=== PATIENT | female | born 1975 | race African-American/Black ===

== ENCOUNTER 2017-08-09 11:03 | Emergency (ER) | payer OTHER ==
[~2017-08-09] VITALS: Ht 162.6 cm; Wt 102.7 kg
[~2017-08-09 11:03] MED LIST: ABILIFY10 MG; ABILIFY10 MG PO; ABILIFY2 MG PO; ALPRAZOLAM0.5 MG PO; ANTIVERT25 MG PO; NOHOMEMEDS; NORCO 5/3251 TABLET PO; PRENATAL TABLE1 EAC3 PO; levothyroxine PO
[2017-08-09 11:41] LABS: HEMATOCRIT 40.2 % (36.0-46.0); MCH 27.5 PG (29.0-34.0); MCHC 32.8 G/DL (30.0-36.0); MCV 83.8 FL (83-99); MEAN PLAT.VOLUME 8.9 uM^3 (9.5-12.4); PLATELET COUNT 490 K/uL (156-360); RBC DIS.WIDTH-CV 14.6 % (11.8-14.6); RBC DIS.WIDTH-SD 44.9 % (39-53); WHITE BLOOD COUNT 10.1 K/uL (4.1-10.2)
[2017-08-09 11:52] LABS: CHLORIDE 102 mEq/L (99-109); POTASSIUM 3.9 mEq/L (3.7-5.4); SODIUM 138 mEq/L (136-147)
[2017-08-09 11:54] LABS: GLUCOSE 132 mg/dL (70-99)
[2017-08-09 11:55] LABS: ANION GAP 10 MEQ/L (2-14)
[2017-08-09 11:58] LABS: GFR ESTIMATE (CALCULATED) > 59 mL/min/
[2017-08-09 11:59] LABS: UREA NITROGEN (BUN) 10 mg/dL (9-23)
[2017-08-09 12:00] LABS: TROP-I INTERPRETATION NEGATIVE; TROPONIN-I < 0.01 ng/mL (0.0-0.30)
[2017-08-09 14:30] VITALS: BP 134/91
== END 2017-08-09 14:31 | disposition home or self-care (01) ==
LOC: EME 11:03
DX: R51 Headache (principal); I10 Essential (primary) hypertension; F32.9 Major depressive disorder, single episode, unspecified; F41.9 Anxiety disorder, unspecified; E05.90 Thyrotoxicosis, unspecified without thyrotoxic crisis or storm; F17.200 Nicotine dependence, unspecified, uncomplicated
CPT/HCPCS: 71020; 80048; 84484; 85027; 93005; 99281; 99284

== ENCOUNTER 2018-01-03 19:57 | Emergency (ER) | payer OTHER ==
[~2018-01-03] VITALS: Ht 162.6 cm; Wt 105.9 kg
[2018-01-03] MEDS ORDERED: NAPROSYN500 MG PO (21:46)
[2018-01-03 22:20] VITALS: BP 157/73
== END 2018-01-03 22:21 | disposition home or self-care (01) ==
LOC: EME 19:57
DX: R59.0 Localized enlarged lymph nodes (principal); I10 Essential (primary) hypertension; R51 Headache; E05.90 Thyrotoxicosis, unspecified without thyrotoxic crisis or storm; F31.9 Bipolar disorder, unspecified; F32.9 Major depressive disorder, single episode, unspecified; F41.9 Anxiety disorder, unspecified; F17.200 Nicotine dependence, unspecified, uncomplicated
CPT/HCPCS: 99281; 99284

== ENCOUNTER 2018-03-12 16:48 | Emergency (ER) | payer OTHER ==
[~2018-03-12] VITALS: Ht 162.6 cm; Wt 106.1 kg
[~2018-03-12 16:48] MED LIST changes: +NAPROSYN500 MG PO
[2018-03-12 17:23] LABS: HEMATOCRIT 37.6 % (36.0-46.0); HEMOGLOBIN 12.7 G/DL (11.9-15.5); MCH 27.9 PG (29.0-34.0); MCHC 33.8 G/DL (30.0-36.0); MCV 82.5 FL (83-99); PLATELET COUNT 461 K/uL (156-360); RBC DIS.WIDTH-CV 14.2 % (11.8-14.6); RBC DIS.WIDTH-SD 42.5 % (39-53); RED BLOOD COUNT 4.56 M/uL (3.80-5.20)
[2018-03-12 17:36] LABS: CHLORIDE 104 mEq/L (99-109); POTASSIUM 3.6 mEq/L (3.7-5.4); SODIUM 137 mEq/L (136-147)
[2018-03-12 17:39] LABS: GLUCOSE 114 mg/dL (70-99); TOTAL PROTEIN 7.7 g/dL (6.4-8.3)
[2018-03-12 17:41] LABS: TOTAL BILIRUBIN 0.2 mg/dL (0.0-1.0)
[2018-03-12 17:42] LABS: ALKALINE PHOSPHATASE 78 IU/L (3-129); CREATININE 0.7 mg/dL (0.6-1.3); GFR ESTIMATE (CALCULATED) > 59 mL/min/
[2018-03-12 17:43] LABS: UREA NITROGEN (BUN) 12 mg/dL (9-23)
[2018-03-12 17:44] LABS: AST (GOT) 12 IU/L (2-34)
[2018-03-12 17:45] LABS: ALT (GPT) 13 IU/L (3-49)
[2018-03-12 17:51] LABS: QUANTITATIVE HCG 5387.3 MIU/ML
[2018-03-12 19:35] LABS: APPEARANCE CLEAR ((CLEAR)); BILIRUBIN NEGATIVE; BLOOD MODERATE; COLOR YELLOW ((YELLOW)); GLUCOSE (STRIP) NEGATIVE; KETONES NEGATIVE; LEUKOCYTES NEGATIVE; NITRITE NEGATIVE; PROTEIN (STRIP) NEGATIVE
[2018-03-12 19:41] LABS: BACTERIA RARE /HPF; EPITHELIAL CELLS RARE /HPF; MUCUS TRACE /LPF; RED BLOOD CELLS 0-5 /HPF (0-5); WHITE BLOOD CELLS 0-5 /HPF (0-5)
[2018-03-12] MEDS ORDERED: PERCOCET 5/31 TABLET PO (19:52)
[2018-03-12 20:01] VITALS: BP 134/86
== END 2018-03-12 20:02 | disposition home or self-care (01) ==
LOC: EME 16:48
PROVIDERS: Nurse Practitioner Family
DX: O03.4 Incomplete spontaneous abortion without complication (principal); F32.9 Major depressive disorder, single episode, unspecified; F41.9 Anxiety disorder, unspecified; F17.200 Nicotine dependence, unspecified, uncomplicated
CPT/HCPCS: 76801; 80053; 81003; 84702; 85027; 99281; 99284